=== PATIENT | female | born 1995 | race Caucasian/White ===

== ENCOUNTER 2017-09-18 12:11 | Emergency (ER) | payer MEDICAID ==
[2017-09-18 13:08] LABS: EOSINOPHILS 3.2 % (0-7); HEMATOCRIT 35.6 % (36.0-48.0); HEMOGLOBIN 11.9 g/dL (12-16); IMMATURE GRANULOCYTES 0.2 % (0-5); LYMPHOCYTES 29.8 % (15-50); MCH 29.6 pg (26.0-34.0); MCHC 33.4 g/dL (31.0-37.0); MCV 88.6 fL (80.0-100.0); MEAN PLATELET VOLUME 9.2 fL (7.4-10.4); MONOCYTES 7.5 % (2-11); NEUTROPHILS 58.3 % (40-80); PLATELET COUNT 424 10x3/uL (130-400); RBC 4.02 10x6/uL (4.00-5.40); RDW 13.9 % (11.5-14.5); WBC 8.2 10x3/uL (4.8-10.8)
[2017-09-18 13:09] LABS: APPEARANCE HAZY (CLEAR); BACTERIA MODERATE /hpf (NONE SEEN); BILIRUBIN NEGATIVE (NEGATIVE); COLOR YELLOW (YELLOW); GLUCOSE NEGATIVE (NEGATIVE); KETONE NEGATIVE (NEGATIVE); NITRITE NEGATIVE (NEGATIVE); PROTEIN NEGATIVE (NEGATIVE); RED CELLS - URINE 0-5 /hpf (0-5); UROBILINOGEN NORMAL (NORMAL); WHITE CELLS - URINE 0-5 /hpf (0-5)
[2017-09-18 13:10] LABS: MUCUS >1+ /lpf (NONE SEEN)
[2017-09-18 13:21] LABS: HCG SERUM NEGATIVE (NEGATIVE)
== END 2017-09-18 14:38 | disposition left against medical advice (07) ==
LOC: D.ER 12:11
PROVIDERS: Emergency Medicine
DX: N93.9 Abnormal uterine and vaginal bleeding, unspecified (principal)

== ENCOUNTER 2018-04-29 19:07 | Emergency (ER) | payer MEDICAID | END 2018-04-29 19:32 | disposition short-term general hospital (02) | LOC: D.ER 19:07 | DX: I10 Essential (primary) hypertension (principal) ==

== ENCOUNTER → 2018-04-29 20:11 | Outpatient (CLI) | payer MEDICAID | END | disposition home or self-care (01) | LOC: D.LDO 20:11 | DX: O26.892 Other specified pregnancy related conditions, second trimester (principal); Z3A.22 22 weeks gestation of pregnancy; R11.0 Nausea; R51 Headache ==